=== PATIENT | male | born 1940 | race Caucasian/White ===

== ENCOUNTER 2018-02-03 15:25 | Emergency (ER) | payer SELFPAY ==
[2018-02-03 15:27] VITALS: BP 200/103; PULSE 71; RESP 20; TEMP 37.1; O2SAT 95; BMI 24.2
--- NOTE | 2018-02-03 15:37 | EKG12_ITS ---
Test Reason : CP Blood Pressure : / mmHG Vent. Rate : 067 BPM Atrial Rate : 067 BPM P-R Int : 190 ms QRS Dur : 150 ms QT Int : 420 ms P-R-T Axes : 075 -76 061 degrees QTc Int : 443 ms Normal sinus rhythm Left axis deviation Right bundle branch block Abnormal ECG Confirmed by GILES SILVA, TYRESE ([id number]), medical transcription editor TIFFANIE CAPUTO ([id number]) on 02/07/2018 8:27:38 AM Referred By: SWETHA Confirmed By:TYRESE SKAGGS MD
[2018-02-03] MEDS: Morphine 4 MG/ML Syringe IV (15:41)
[2018-02-03] MEDS: Ondansetron 4 MG/2 ML Vial IV (15:41)
[2018-02-03 15:50] VITALS: BP 148/108; RESP 19; TEMP 37.2; O2SAT 97
--- NOTE | 2018-02-03 15:50 | ED.DCSUM_ITS ---
- ER Visit Summary Date of Service: 02/03/18 Chief Complaint: Right-sided chest pain, shortness of breath and productive cough History of Present Illness: The patient is a 77 M who was admitted to outside facility approximately 3 months ago for community-acquired pneumonia presents today with several day history of right-sided chest pain that is worse with breathing, movement of his torso and right upper extremity. He does report a cough which is productive. He denies fever, chills or night sweats. He denies weight gain or weight loss. He is a former smoker. There is no history of trauma. He denies history of PE or DVT and has no risk factors. He denies leg pain, swelling discoloration. He denies any skin lesion or rash. He denies any ocular, visual or auditory symptoms. He denies any GI or symptoms. He denies headache, weakness, paresthesia, anesthesia or motor weakness. He denies myalgias or arthralgias. He denies problems with bruising easily or bleeding disorder. He denies hives or anaphylaxis. He is presently on no medication and has no history of any chronic medical problems. He denies any allergies. Physical Examination: Blood pressure 200/103, temperature 98.7, heart rate 71, respiratory of 20 with a saturation 95% on room air. Patient has labored breathing. Head is atraumatic normocephalic. Pupils are equal round reactive. Extraocular muscles are intact. TMs are pearly white with landmarks noted. Nares patent with no drainage. Posterior pharynx without erythema or exudate. Uvula is midline. There is no dysphonia or dysphasia. Trachea is midline. There is no stridor with auscultation of the neck. Heart is regular without murmur, gallop or rub. Lungs revealed diminished breath sounds increase x-ray phase with high-pitched wheezing. There is no hyperresonance to percussion and breath sounds were noted bilaterally. Abdomen is soft nontender with no palpable cell mass. There is no abdominal bruit. He does have a reducible left inguinal hernia. There is no asymmetry, swelling, discoloration, leg vein distention, palpable cords or tenderness along the distribution of the deep venous system. Neuro exam is nonfocal. Test Results: Chest x-ray reveals hyperaeration with chronic changes in mild increased interstitial markings right upper and left upper lobe. There is no discrete infiltrate noted. EKG that was ordered per nurse protocol reveals a sinus rhythm rate of 67 with a right bundle branch block. White count is 11.1 thousand. BMP is marked for glucose of 108. Lactate is normal at 1.5. Emergency Department Course and Treatment: Chest x-ray was obtained to evaluate for pneumonia and appropriate blood work. If lactate is elevated and there is a source of infection we will obtain blood cultures. He was treated with DuoNeb and albuterol. hydrographical technical officer was told to return after patient is medicated, so that an interpretable EKG would be obtained. To discharge patient will receive 15 mg of Toradol IV push for his pleuritic pain and prescription for NSAID. Treatment Plan: Patient was reassessed at 1715. He is moving more air. There is still mild wheezing. Therefore will discharge with prescription for doxycycline 100 mg twice daily ?7 days, 5 day burst of prednisone 40 mg a day and albuterol inhaler 2 puffs every 2-4 hours while awake for the next 3-5 days then every 4-6 hours as needed. Disposition: Since patient's vitals are unremarkable he is not hypoxic will discharge to home with family Impression: 1. Exacerbation of COPD with bronchospasm 2. Purulent bronchitis 3. Pleuritic right-sided chest pain This note was generated with [employer] dictation software. It may contain incorrect words, spelling, and punctuation that were not noted in review of the chart prior to signing ED Disposition - Plan for ED Patient: Disposition: Home or Assisted Living Chief Complaint: Chest Pain Instructions: ED COPD Flare, ED Chest Pain Pleurisy Prescriptions: Albuterol Inhaler [Ventolin Hfa] 2 puff INHALATION UD #1 inhaler Prednisone 40 mg PO DAILY #10 tab Doxycycline [Vibramycin] 100 mg PO BID #14 cap Referrals: Care Physician,No Primary [Primary Care Provider] - Fast,Jazmin, DO [NON-STAFF] - 3-5 Days if not improving
[2018-02-03] MEDS: Albuterol 2.5 MG/3 ML VIAL.NEB. INHALATION ×2 (15:57)
[2018-02-03] MEDS: Ipratropium/Albuterol Sulfate 3 ML AMPUL.NEB INHALATION (15:57)
[2018-02-03 15:58] VITALS: PULSE 64; RESP 18
[2018-02-03 16:19] LABS: Anion Gap 7 (5-15); BUN 20 mg/dL (7-18); BUN/Creat Ratio 21.9 RATIO (10-20); Calcium,Total 8.8 mg/dL (8.5-10.1); Chloride 102 mmol/L (98-107); Creatinine, Serum 0.92 mg/dL (0.70-1.30); EST Glomerular Filtration Rate 85 mL/min (>60); Est Glom Filt Rate - Afr Amer 103 mL/min (>60); Glucose 108 mg/dL (74-106); Potassium 3.5 mmol/L (3.5-5.1); Sodium Level 139 mmol/L (136-145)
[2018-02-03 16:22] LABS: Lactic Acid 1.5 mmol/L (0.4-2.0)
--- NOTE | 2018-02-03 16:25 | RAD_ITS ---
STUDY: X-RAY CHEST REASON FOR EXAM: Male, 77 years old. Right chest pain TECHNIQUE: Frontal and lateral views of the chest were obtained. COMPARISON: None. FINDINGS: The lungs are hyperinflated. There are increased markings in the upper lungs, left greater than right. There is no demonstrated pleural abnormality. The cardiac silhouette is normal in size. The mediastinum and hilar regions are unremarkable. Normal visualized pulmonary arteries. There is atherosclerotic calcification of the thoracic aorta. There are diffuse degenerative changes of the visualized spine. The visualized ribs, clavicles, and shoulders are unremarkable. There is no demonstrated abnormality of the visualized upper abdomen. RAD/Chest PA and Lateral IMPRESSION: There are indeterminate opacities in the upper lungs, possible scarring. Superimposed consolidation/infection cannot be excluded on the left side. There is no evidence of pleural effusion. Hyperinflation suggests COPD. Electronically Signed: Vivi Wolfe MD at 17:36 EDT Tel Direct: [phone], Service support ,
[2018-02-03 16:27] LABS: Absolute Lymphocyte Count 2.53 X10^3/ul (0.83-4.51); Absolute Neutrophil Count 6.4 X10^3/uL (2.0-7.7); Basophil# 0.02 X10^3/uL; Basophil% 0.2 % (0-1); Differential Indicated SCAN CRITERIA MET; Eosinophil# 0.17 X10^3/uL; Eosinophils% 1.5 % (0-5); Hematocrit 41.4 % (40-54); Hemoglobin 13.5 g/dl (13.0-16.5); Lymphocyte # 2.53 X10^3/ul (4.0); Lymphocyte % 22.8 % (19-41); Mean Corp Hgb Conc 32.6 g/gl (32-36); Mean Corpuscular Hgb 29.5 pg (27.0-32.0); Mean Corpuscular Volume 90.4 fL (80-94); Mean Platelet Vol. 9.7 fl (6.2-12.0); Monocyte# 1.94 X10^3/uL; Monocyte% 17.4 % (0-10); Neutrophil # 6.44 X10^3/uL (2.7-7.7); Neutrophil % 57.9 % (47-70); POSITIVE COUNT NO; POSITIVE DIFFERENTIAL YES; POSITIVE MORPHOLOGY NO; Platelet Count 195 K/mm3 (150-450); RBC Distribution Width CV 13.9 % (11.6-14.6); Red Blood Count 4.58 M/mm3 (4.6-6.2); White Blood Count 11.1 K/mm3 (4.4-11.0)
[2018-02-03 16:39] LABS: Anisocytosis RARE; Platelet Estimate ADEQUATE (ADEQ)
[2018-02-03 16:40] LABS: Macrocytosis RARE
[2018-02-03 17:12] VITALS: BP 169/92; PULSE 70; RESP 17; O2SAT 97
[2018-02-03 17:37] VITALS: BP 178/93; PULSE 73; RESP 19; O2SAT 93
[2018-02-03] MEDS: predniSONE 20 MG Tablet 60 MG PO (17:42)
[2018-02-03] MEDS: Doxycycline 100 MG CAPSULE PO (17:42)
[2018-02-06 14:35] LABS: Pathologist Review Reviewed
== END 2018-02-03 17:44 | disposition home or self-care (01) ==
PROVIDERS: Emergency Provider Emergency Medicine
DX: J44.1 Chronic obstructive pulmonary disease with (acute) exacerbation (principal); J44.0 Chronic obstructive pulmonary disease with (acute) lower respiratory infection; J20.9 Acute bronchitis, unspecified; K40.90 Unilateral inguinal hernia, without obstruction or gangrene, not specified as recurrent; Z87.01 Personal history of pneumonia (recurrent); Z87.891 Personal history of nicotine dependence
CPT/HCPCS: 71046; 80048; 83605; 85025; 93005; 94640; 96374; 96375; 99285; J7050; J2405